=== PATIENT | male | born 1930 | race Caucasian/White ===

== ENCOUNTER 2017-11-16 08:31 | Emergency (ER) | payer MEDICARE ==
[~2017-11-16 08:31] MED LIST: MEVA40TA6
[2017-11-16 08:52] VITALS: BP 183/86; PULSE 66; RESP 20; TEMP 97.9; O2SAT 99
--- NOTE | 2017-11-16 08:52 | PD ---
HPI Chief Complaint: Musculoskeletal Complaint Time Seen by Provider: 08:52 Travel History International Travel<30 days: No Contact w/Intl Traveler<30days: No Traveled to known affect area: No History of Present Illness HPI 87-year-old male came to the emergency room with bilateral chest sidewall pain for past 3-4 days. Patient says the pain today is gone. It was there on Thursday , Thursday and Thursday. Patient went dancing on Thursday and says that he felt fine. After the dance he was soaked in the rain. The pain was on and off on Thursday and Thursday but today it is not there anymore. He called his primary care office and they suggested that he should come to the emergency room. Vital signs are relatively stable. No history of fever or chills. No history of cough. The pain is not pleuritic in nature. No aggravating or relieving symptoms identified. No radiation of the pain. PFSH Past Medical History Narrative Medical List of her past medical, surgical, social and family history is reviewed from the nursing note. High Cholesterol: Yes Past Surgical History Appendectomy: Yes Social History Alcohol Use: Yes (OCC) Tobacco Use: No Allergies-Medications (Allergen,Severity, Reaction): Coded Allergies: No Known Allergies (Verified Allergy, Mild, 11/16/17) Comments No known drug allergies. Reported Meds & Prescriptions Reported Meds & Active Scripts Active Zithromax Z-Zaid (Azithromycin) 250 Mg Dspk 250 Mg PO DIRECTED 500 MG (2 tabs) day 1, then 1 tab days 2-5. Reported Niacin 100 Mg Tab Unknown Dose PO DAILY Lovastatin 40 Mg Tab 40 Mg PO DAILY Narrative Medication List of her home meds reviewed from the nursing note. Review of Systems Except as stated in HPI: all other systems reviewed are Neg Cardiovascular: Positive: Chest Pain or Discomfort Physical Exam Narrative GENERAL: Awake, alert, elderly, no obvious distress SKIN: Focused skin assessment warm/dry. HEAD: Atraumatic. Normocephalic. EYES: Pupils equal and round. No scleral icterus. No injection or drainage. ENT: No nasal bleeding or discharge. Mucous membranes pink and moist. NECK: Trachea midline. No JVD. CARDIOVASCULAR: Regular rate and rhythm. No murmur appreciated. RESPIRATORY: No accessory muscle use. Clear to auscultation. Breath sounds equal bilaterally. GASTROINTESTINAL: Abdomen soft, non-tender, nondistended. Hepatic and splenic margins not palpable. MUSCULOSKELETAL: No obvious deformities. No clubbing. No cyanosis. No edema. NEUROLOGICAL: Awake and alert. No obvious cranial nerve deficits. Motor grossly within normal limits. Normal speech. PSYCHIATRIC: Appropriate mood and affect; insight and judgment normal. Data Data Last Documented VS Orders Orders Electrocardiogram (11/16/17 08:59) Basic Metabolic Panel (Bmp) (11/16/17 08:59) Complete Blood Count With Diff (11/16/17 08:59) Magnesium (Mg) (11/16/17 08:59) Prothrombin Time / Inr (Pt) (11/16/17 08:59) Troponin I (11/16/17 08:59) Chest, Single Ap (11/16/17 08:59) Ecg Monitoring (11/16/17 08:59) Bilateral Bp Monitoring (11/16/17 08:59) Iv Access Insert/Monitor (11/16/17 08:59) Oximetry (11/16/17 08:59) Oxygen Administration (11/16/17 08:59) Sodium Chloride 0.9% Flush (Ns Flush) (11/16/17 09:00) Urinalysis - C+S If Indicated (11/16/17 08:59) B-Type Natriuretic Peptide (11/16/17 10:37) Troponin I (11/16/17 12:00) Ed Discharge Order (11/16/17 13:16) Labs Laboratory Tests Test 11/16/17 09:05 11/16/17 11:15 11/16/17 12:30 White Blood Count 7.8 TH/MM3 Red Blood Count 5.26 MIL/MM3 Hemoglobin 15.1 GM/DL Hematocrit 46.3 % Mean Corpuscular Volume 88.2 FL Mean Corpuscular Hemoglobin 28.6 PG Mean Corpuscular Hemoglobin Concent 32.5 % Red Cell Distribution Width 12.4 % Platelet Count 163 TH/MM3 Mean Platelet Volume 8.5 FL Neutrophils (%) (Auto) 75.1 % Lymphocytes (%) (Auto) 19.2 % Monocytes (%) (Auto) 4.3 % Eosinophils (%) (Auto) 1.0 % Basophils (%) (Auto) 0.4 % Neutrophils # (Auto) 5.9 TH/MM3 Lymphocytes # (Auto) 1.5 TH/MM3 Monocytes # (Auto) 0.3 TH/MM3 Eosinophils # (Auto) 0.1 TH/MM3 Basophils # (Auto) 0.0 TH/MM3 CBC Comment DIFF FINAL Differential Comment Prothrombin Time 11.3 SEC Prothromb Time International Ratio 1.1 RATIO Blood Urea Nitrogen 17 MG/DL Creatinine 0.92 MG/DL Random Glucose 129 MG/DL Calcium Level 8.7 MG/DL Magnesium Level 2.2 MG/DL Sodium Level 140 MEQ/L Potassium Level 4.2 MEQ/L Chloride Level 107 MEQ/L Carbon Dioxide Level 26.8 MEQ/L Anion Gap 6 MEQ/L Estimat Glomerular Filtration Rate 78 ML/MIN Troponin I LESS THAN 0.02 NG/ML LESS THAN 0.02 NG/ML B-Type Natriuretic Peptide 42 PG/ML Urine Collection Type CLEAN CATCH Urine Color YELLOW Urine Turbidity CLEAR Urine pH 6.5 Urine Specific [place] 1.018 Urine Protein NEG mg/dL Urine Glucose (UA) NEG mg/dL Urine Ketones NEG mg/dL Urine Occult Blood NEG Urine Nitrite NEG Urine Bilirubin NEG Urine Leukocyte Esterase NEG Urine Squamous Epithelial Cells 0-2 /hpf Microscopic Urinalysis Comment CULT NOT INDICATED MDM Medical Decision Making Medical Screen Exam Complete: Yes Emergency Medical Condition: Yes Medical Record Reviewed: Yes Interpretation(s) Twelve-lead EKG was reviewed by me. Normal sinus rhythm, normal axis, nonspecific ST-T wave changes. Heart rate of 63 bpm. Differential Diagnosis ACS, muscular schedule pain, pneumonia Narrative Course 12:29 PM blood test results of back and within acceptable limit. Chest x-ray was read by the radiologist as congestive heart failure. Patient does not have any symptoms related to congestive heart failure and BNP is negative. Medically I do not think patient has congestive heart failure. I've ordered a second troponin just to be on the safer side. If that's negative patient will be discharged home. In my opinion this is more likely musculoskeletal pain. Procedures EKG Prior to Arrival: No Diagnosis Primary Impression: Atypical chest pain Additional Impression: possible pneumonitis Referrals: Primary Care Physician 2 days Additional Instructions: Please return to the ER if condition worsens or any other new concerns. Otherwise follow-up with your primary care. Take the medication as per the prescription direction. Med/Other Pt SpecificInfo: Prescription(s) given Scripts Azithromycin (Zithromax Z-Zaid) 250 Mg Dspk 250 MG PO DIRECTED for Infection, #1 DSPK 0 Refills 500 MG (2 tabs) day 1, then 1 tab days 2-5. Prov: Reyna Snowden MD 11/16/17 Disposition: 01 DISCHARGE HOME Condition: Stable Reyna Snowden MD Nov 16, 2017 08:52
[2017-11-16] MEDS ORDERED: NIAC100T2 PO (08:56)
[2017-11-16] MEDS ORDERED: LOVA40TA PO (08:56)
[2017-11-16] MEDS ORDERED: SODIUM CHLORIDE 0.9% FLUSH 10 ML FLUSH IVF PRN (09:00)
[2017-11-16 09:11] VITALS: O2SAT 98
[2017-11-16 09:16] LABS: AUTOMATED NEUTROPHIL # 5.9 TH/MM3 (1.8-7.7); BASOPHIL % 0.4 % (0.0-2.0); EOSINOPHIL # 0.1 TH/MM3 (0-0.4); HEMATOCRIT 46.3 % (39.0-51.0); HEMOGLOBIN 15.1 GM/DL (13.0-17.0); LYMPH % 19.2 % (9.0-44.0); LYMPHOCYTE # 1.5 TH/MM3 (1.0-4.8); MEAN CELL VOLUME 88.2 FL (80.0-100.0); MEAN CORPUSCULAR HEMOGLOBIN 28.6 PG (27.0-34.0); MEAN CORPUSCULAR HGB CONC 32.5 % (32.0-36.0); MEAN PLATELET VOLUME 8.5 FL (7.0-11.0); MONO % 4.3 % (0.0-8.0); MONOCYTE # 0.3 TH/MM3 (0-0.9); NEUT % 75.1 % (16.0-70.0); PLATELET COUNT 163 TH/MM3 (150-450); RED BLOOD COUNT 5.26 MIL/MM3 (4.50-5.90); RED CELL DISTRIBUTION WIDTH 12.4 % (11.6-17.2); WHITE BLOOD COUNT 7.8 TH/MM3 (4.0-11.0)
[2017-11-16 09:26] LABS: INTERNATIONAL NORMALIZED RATIO 1.1 RATIO; PROTHROMBIN TIME - PATIENT 11.3 SEC (9.8-11.6)
[2017-11-16 09:31] VITALS: BP_SYST 143; BP_SYST 153; BP_DIAS 83; BP_DIAS 98; PULSE 71; RESP 20; O2SAT 95
[2017-11-16 09:56] LABS: CALCIUM 8.7 MG/DL (8.5-10.1)
[2017-11-16 09:57] LABS: BICARBONATE 26.8 MEQ/L (21.0-32.0); GLUCOSE,RANDOM 129 MG/DL (74-106); MAGNESIUM 2.2 MG/DL (1.5-2.5)
[2017-11-16 10:00] LABS: CREATININE 0.92 MG/DL (0.60-1.30); GLOMERULAR FILTRATION RATE 78 ML/MIN (>89)
[2017-11-16 10:02] LABS: CHLORIDE 107 MEQ/L (98-107); SODIUM (NA) 140 MEQ/L (136-145)
[2017-11-16 10:05] LABS: BLOOD UREA NITROGEN 17 MG/DL (7-18)
--- NOTE | 2017-11-16 10:12 | RADRPT ---
EXAM DATE/TIME: 11/16/2017 09:32 [facility] COMPARISON: No previous studies available for comparison. INDICATIONS : Chest pain MEDICAL HISTORY : None. SURGICAL HISTORY : None. ENCOUNTER: Initial ACUITY: 1 day PAIN SCORE: 7/10 LOCATION: chest FINDINGS: Cardiomegaly with mild interstitial edema. No pleural effusion. No consolidation. No pneumothorax. The portion of the bony skeleton visualized is unremarkable. CONCLUSION: Mild to moderate congestive failure. Paco Tellez MD FACR on November 16, 2017 at 10:09 Board Certified Radiologist. This report was verified electronically.
[2017-11-16 10:13] LABS: TROPONIN I LESS THAN 0.02 NG/ML (0.02-0.05)
[2017-11-16 10:53] VITALS: BP 141/73; PULSE 73; RESP 20; O2SAT 94
[2017-11-16 11:29] LABS: BILIRUBIN, URINE NEG (NEG); BLOOD, URINE NEG (NEG); GLUCOSE,URINE NEG (NEG); KETONE, URINE NEG (NEG); NITRITE,URINE NEG (NEG); PH, URINE 6.5 (5.0-8.5); URINE LEUKOCYTE ESTERASE NEG (NEG)
[2017-11-16 11:41] LABS: SQUAMOUS EPITHELIAL CELL URINE 0-2 /hpf (0-5); URINE COLOR YELLOW (YELLW/STRAW)
[2017-11-16 12:07] VITALS: BP 133/88; PULSE 67; RESP 20; O2SAT 97
[2017-11-16] MEDS ORDERED: ZITHTAB PO (13:15)
--- NOTE | 2017-11-16 21:57 | EKG ---
Date Performed: 11/16/2017 Time Performed: 09:10:19 PTAGE: 87 years EKG: Sinus rhythm NORMAL ECG NO PREVIOUS TRACING DOCTOR: Kayla Dye Interpretating Date/Time 11/16/2017 21:55:14
== END 2017-11-16 13:30 | disposition home or self-care (01) ==
LOC: PHED 08:31
DX: R07.89 Other chest pain (principal); E78.00 Pure hypercholesterolemia, unspecified; I51.7 Cardiomegaly
CPT/HCPCS: 71045; 80048; 81001; 83735; 83880; 84484; 85025; 85610; 93005; 99285